=== PATIENT | female | born 1995 ===

== ENCOUNTER 2018-01-24 09:18 | Emergency (ER) | payer MEDICAID ==
[2018-01-24 09:28] VITALS: O2SAT 100
--- NOTE | 2018-01-24 09:57 | C.PDOC ---
History Of Present Illness 22 year old female presents to the ED for evaluation of left upper quadrant abdominal pain x 1 hour. Pain is localized and patient also reports diarrhea yesterday. Patient denies fever, nausea, vomiting. Past surgical history if negative. LMP was 1 months ago. No UTI symptoms. LUQ PAIN X 1 HR. LOCALIZED +DIARRHEA YEST. NO NV, FEVER. PSH NEG. LMP 1 MO. NO UTI SX EXAM NAD NONTOXIC ABD NEG REMAINDER NEG Time Seen by Provider: 01/24/18 09:48 Chief Complaint (Nursing): Abdominal Pain History Per: Patient History/Exam Limitations: no limitations Onset/Duration Of Symptoms: Mins (60) Current Symptoms Are (Timing): Still Present Location Of Pain/Discomfort: LUQ Radiation Of Pain To:: None Quality Of Discomfort: "Pain" Associated Symptoms: Diarrhea. denies: Fever, Nausea, Vomiting, Urinary Symptoms Additional History Per: Patient Abnormal Vaginal Bleeding: No Past Medical History Reviewed: Historical Data, Nursing Documentation, Vital Signs Vital Signs: Last Vital Signs Temp 98.2 F 01/24/18 14:35 Pulse 61 01/24/18 14:35 Resp 20 01/24/18 14:35 BP 112/73 01/24/18 14:35 Pulse Ox 100 01/24/18 14:53 - Medical History PMH: Gastritis Surgical History: No Surg Hx Family History: States: Unknown Family Hx - Social History Hx Tobacco Use: No Hx Alcohol Use: No Hx Substance Use: No - Immunization History Hx Influenza Vaccination: Yes Hx Pneumococcal Vaccination: No Review Of Systems Constitutional: Negative for: Fever Gastrointestinal: Positive for: Abdominal Pain (left upper quadrant, localized ) , Diarrhea. Negative for: Nausea, Vomiting Physical Exam - Physical Exam Appears: Non-toxic, No Acute Distress Skin: Normal Color, Warm, Dry Head: Atraumatic, Normacephalic Eye(s): bilateral: Normal Inspection Oral Mucosa: Moist Neck: Supple Chest: Symmetrical, No Deformity, No Tenderness Cardiovascular: Rhythm Regular, No Murmur Respiratory: Normal Breath Sounds, No Rales, No Rhonchi, No Wheezing Gastrointestinal/Abdominal: Soft, No Tenderness, No Guarding, No Rebound Extremity: Normal ROM, Capillary Refill (less than 2 seconds ) Neurological/Psych: Oriented x3, Normal Speech, Normal Cognition ED Course And Treatment - Laboratory Results Result Diagrams: 01/24/18 10:38 01/24/18 10:38 O2 Sat by Pulse Oximetry: 100 (on RA) Pulse Ox Interpretation: Normal - CT Scan/US CT abdomen/pelvis Other Rad Studies (CT/US): Interpreted By Me, Read By Radiologist CT/US Interpretation: PROCEDURE: CT abdomen pelvis dated 01/24/2018. HISTORY: Left upper quadrant pain. COMPARISON: Comparison made with prior CT scan abdomen pelvis 06/19/2012. TECHNIQUE: Contiguous axial images of the abdomen and pelvis performed following oral and intravenous injection of contrast material. Additional 2D sagittal and coronal reformats generated. This CT exam was performed using one or more of the following dose reduction techniques : Automated exposure control, adjustment of the mA and/or kV according to patient size, and/or use of iterative reconstruction technique. Contrast dose: 100 cc Omnipaque 350. Radiation dose: Total exam DLP = 1082.64 mGy-cm. This CT exam was performed using one or more of the following dose reduction techniques: Automated exposure control, adjustment of the mA and/or kV according to patient size, and/or use of iterative reconstruction technique. . FINDINGS: LOWER THORAX: Minor at atelectasis and or scarring changes both lung bases. No evidence of effusion or basilar pneumothorax. There is small hiatal hernia. Heart size normal. No significant pericardial effusion. LIVER: Liver exhibits normal size measuring nearly 17 cm in CC dimension. Mild diffuse fatty hepatic infiltration. No obvious hepatic mass collection or calcification. Portal and splenic veins are opacified. The. GALLBLADDER AND BILE DUCTS: Gallbladder is physiologically distended. No evidence of intraluminal gallbladder calculi. PANCREAS: Unremarkable. No mass. No ductal dilatation. SPLEEN: Unremarkable. No splenomegaly. ADRENALS: No adrenal lesions. KIDNEYS AND URETERS: Kidneys demonstrate symmetric nephrograms. No evidence of nephrolithiasis or hydronephrosis. BLADDER: Urinary bladder is physiologically distended. No evidence of intraluminal urinary bladder calculi. REPRODUCTIVE: Uterus and adnexal structures appear grossly unremarkable. APPENDIX: What is felt to represent normal appendix of best seen on sagittal sequence number [id number] and axial sequence image number [id number]. No periappendiceal inflammatory changes. BOWEL: Evaluation of the bowel slightly limited due to incomplete opacification. Stomach is partially distended with liquid contrast material and air. There are a several of loops of distal ileum that exhibit mild wall thickening nonspecific. Rule out nonspecific enteritis. No evidence of acute mechanical small bowel obstruction with oral contrast material and extending into the colon to the level of the cecum - proximal ascending colon. . Proximal descending colon is somewhat redundant of. No evidence of acute mechanical bowel obstruction with stool seen throughout the ascending and proximal transverse colon with air seen within the distal transverse colon and proximal descending colon. The distal descending colon and sigmoid colon are collapsed. PERITONEUM: Unremarkable. No fluid collection. No free air. Small fat containing umbilical hernia. LYMPH NODES: Unremarkable. No enlarged lymph nodes. VASCULATURE: Unremarkable. No aortic aneurysm. BONES: No fracture or destructive lesion. OTHER FINDINGS: None. IMPRESSION: There are a several of loops of distal ileum that exhibit mild wall thickening nonspecific. Rule out nonspecific enteritis Progress Note: Bloodwork and urinalysis ordered and reviewed. Bentyl IM, PO, and Toradol IVP administered. Progress - Re-Evaluation Re-evaluation Note: 01/24/18 11:12 so persist luq pain NO IMPROVE S/P BENTYL AND TORADOL. REQUESTING IMAGING. SOFT NT ND NO RG. 01/24/18 14:52 APPEARS COMFORTABLE NAD TALKING ON CELLPHONE WO DIFFICULTY. NO ACUTE FINDINGS DC - Data Reviewed Data Reviewed: Lab, Diagnostic imaging, Old records Disposition Counseled Patient/Family Regarding: Studies Performed, Diagnosis, Need For Followup - Disposition Referrals: [facility] [Outside] [facility] [Outside] [facility] [Outside] Disposition: HOME/ ROUTINE Disposition Time: 14:53 Condition: IMPROVED Instructions: Acute Pelvic Pain (DC) Forms: [facility] (Vietnamese) - Clinical Impression Clinical Impression: Abdominal pain - Scribe Statement The provider has reviewed the documentation as recorded by the Scribe (Magda Rossi) Provider Attestation: All medical record entries made by the Scribe were at my direction and personally dictated by me. I have reviewed the chart and agree that the record accurately reflects my personal performance of the history, physical exam, medical decision making, and the department course for this patient. I have also personally directed, reviewed, and agree with the discharge instructions and disposition.
[2018-01-24] MEDS ORDERED: Belladonna-Phenobarbital PO STA (09:59)
[2018-01-24 10:26] LABS: SQUAMOUS EPITHIAL 10 /hpf (0-5); URINE BACTERIA RARE (<OCC); URINE BILIRUBIN NEGATIVE (NEGATIVE); URINE BLOOD NEGATIVE (NEGATIVE); URINE CLARITY Hazy (Clear); URINE COLOR Yellow (YELLOW); URINE GLUCOSE (UA) NORMAL (Normal); URINE LEUKOCYTE ESTERASE 1+ Leu/uL (Negative); URINE PROTEIN NEGATIVE (NEGATIVE); URINE UROBILINOGEN NORMAL mg/dL (0.2-1.0)
[2018-01-24 10:48] LABS: BASO % 0.6 % (0.0-2.0); EOS # 0.1 K/uL (0.0-0.7); EOS % 1.2 % (0.0-4.0); HEMOGLOBIN 12.6 g/dL (11.0-16.0); LYMPH # 1.9 K/uL (1.0-4.3); LYMPH % 27.3 % (20.0-40.0); MEAN CELL VOLUME 87.5 fL (81.0-99.0); MEAN CORPUSCULAR HEMOGLOBIN 30.4 pg (27.0-31.0); MEAN CORPUSCULAR HGB CONC 34.7 g/dL (33.0-37.0); MEAN PLATELET VOLUME 8.3 fL (7.2-11.7); MONO # 0.7 K/uL (0.0-0.8); MONO % 10.9 % (0.0-10.0); NEUT # 4.1 K/uL (1.8-7.0); RBC 4.14 Mil/uL (3.80-5.20); RED CELL DISTRIBUTION WIDTH 12.9 % (11.5-14.5); WHITE BLOOD COUNT 6.8 K/uL (4.8-10.8)
[2018-01-24 11:11] LABS: BLOOD UREA NITROGEN 10 mg/dL (7-17); CALCIUM 8.9 mg/dl (8.6-10.4); GFR AFRICAN-AMERICAN > 60; GFR NON-AFRICAN AMERICAN > 60
[2018-01-24] MEDS ORDERED: Iohexol 240 (50 ml) PO ONE (11:12)
[2018-01-24] MEDS ORDERED: Iohexol 240 (50 ml) ONE (11:29)
[2018-01-24] MEDS ORDERED: Morphine 4 MG/ML VIAL ONE (11:29)
[2018-01-24] MEDS ORDERED: Iohexol 350mg/ml 100 ML ONE (13:09)
[2018-01-24 14:35] VITALS: BP 112/73; PULSE 61; RESP 20; TEMP 98.2
--- NOTE | 2018-01-24 14:46 | CT ---
PROCEDURE: CT abdomen pelvis dated 01/24/2018 HISTORY: Left upper quadrant pain COMPARISON: Comparison made with prior CT scan abdomen pelvis 06/19/2012 TECHNIQUE: Contiguous axial images of the abdomen and pelvis performed following oral and intravenous injection of contrast material. Additional 2D sagittal and coronal reformats generated. This CT exam was performed using one or more of the following dose reduction techniques: Automated exposure control, adjustment of the mA and/or kV according to patient size, and/or use of iterative reconstruction technique. Contrast dose: 100 cc Omnipaque 350 Radiation dose: Total exam DLP = 1082.64 mGy-cm. This CT exam was performed using one or more of the following dose reduction techniques: Automated exposure control, adjustment of the mA and/or kV according to patient size, and/or use of iterative reconstruction technique. . FINDINGS: LOWER THORAX: Minor at atelectasis and or scarring changes both lung bases. No evidence of effusion or basilar pneumothorax. There is small hiatal hernia. Heart size normal. No significant pericardial effusion LIVER: Liver exhibits normal size measuring nearly 17 cm in CC dimension. Mild diffuse fatty hepatic infiltration. No obvious hepatic mass collection or calcification. Portal and splenic veins are opacified. The GALLBLADDER AND BILE DUCTS: Gallbladder is physiologically distended. No evidence of intraluminal gallbladder calculi. PANCREAS: Unremarkable. No mass. No ductal dilatation. SPLEEN: Unremarkable. No splenomegaly. ADRENALS: No adrenal lesions. KIDNEYS AND URETERS: Kidneys demonstrate symmetric nephrograms. No evidence of nephrolithiasis or hydronephrosis BLADDER: Urinary bladder is physiologically distended. No evidence of intraluminal urinary bladder calculi. REPRODUCTIVE: Uterus and adnexal structures appear grossly unremarkable. APPENDIX: What is felt to represent normal appendix of best seen on sagittal sequence number [id number] and axial sequence image number [id number]. No periappendiceal inflammatory changes. BOWEL: Evaluation of the bowel slightly limited due to incomplete opacification. Stomach is partially distended with liquid contrast material and air. There are a several of loops of distal ileum that exhibit mild wall thickening nonspecific. Rule out nonspecific enteritis No evidence of acute mechanical small bowel obstruction with oral contrast material and extending into the colon to the level of the cecum - proximal ascending colon. . Proximal descending colon is somewhat redundant of. No evidence of acute mechanical bowel obstruction with stool seen throughout the ascending and proximal transverse colon with air seen within the distal transverse colon and proximal descending colon. The distal descending colon and sigmoid colon are collapsed. PERITONEUM: Unremarkable. No fluid collection. No free air. Small fat containing umbilical hernia. LYMPH NODES: Unremarkable. No enlarged lymph nodes. VASCULATURE: Unremarkable. No aortic aneurysm. BONES: No fracture or destructive lesion. OTHER FINDINGS: None. IMPRESSION: There are a several of loops of distal ileum that exhibit mild wall thickening nonspecific. Rule out nonspecific enteritis
== END 2018-01-24 15:10 | disposition home or self-care (01) ==
LOC: C.ER 09:18
DX: R10.12 Left upper quadrant pain (principal)
CPT/HCPCS: 36415; 74177; 80048; 81001; 85025; 96372; 96374; 96375; 99284; J0500; J1885; J2270; Q9966; Q9967

== ENCOUNTER → 2019-01-01 | Outpatient (CLI) | payer MEDICAID | LOC: C.DIABED 11:06 | DX: E66.9 Obesity, unspecified (principal) ==